=== PATIENT | male | born 1965 | race Caucasian/White ===

== ENCOUNTER 2017-10-05 23:22 | Emergency (ER) | payer OTHER ==
[2017-10-05 23:40] VITALS: BP 165/101; PULSE 77; RESP 18; TEMP 97.9; O2SAT 100
[2017-10-05 23:54] VITALS: BP 175/100; PULSE 73; RESP 16; TEMP 98.8; O2SAT 99
[2017-10-06 01:26] LABS: AUTOMATED NEUTROPHIL # 4.7 TH/MM3 (1.8-7.7); BASOPHIL # 0.1 TH/MM3 (0-0.2); BASOPHIL % 1.1 % (0.0-2.0); EOSINOPHIL # 0.2 TH/MM3 (0-0.4); EOSINOPHIL % 3.2 % (0.0-4.0); HEMATOCRIT 47.4 % (39.0-51.0); HEMOGLOBIN 16.1 GM/DL (13.0-17.0); LYMPH % 19.2 % (9.0-44.0); LYMPHOCYTE # 1.3 TH/MM3 (1.0-4.8); MEAN CELL VOLUME 89.8 FL (80.0-100.0); MEAN CORPUSCULAR HEMOGLOBIN 30.5 PG (27.0-34.0); MEAN CORPUSCULAR HGB CONC 33.9 % (32.0-36.0); MEAN PLATELET VOLUME 8.5 FL (7.0-11.0); MONO % 7.8 % (0.0-8.0); MONOCYTE # 0.5 TH/MM3 (0-0.9); NEUT % 68.7 % (16.0-70.0); PLATELET COUNT 266 TH/MM3 (150-450); RED BLOOD COUNT 5.28 MIL/MM3 (4.50-5.90); RED CELL DISTRIBUTION WIDTH 13.2 % (11.6-17.2); WHITE BLOOD COUNT 6.8 TH/MM3 (4.0-11.0)
[2017-10-06 01:38] LABS: ALBUMIN 4.3 GM/DL (3.4-5.0); ALT (GPT) 46 U/L (12-78); AST (GOT) 43 U/L (15-37); BICARBONATE 30.1 MEQ/L (21.0-32.0); BLOOD UREA NITROGEN 9 MG/DL (7-18); CALCIUM 8.5 MG/DL (8.5-10.1); CHLORIDE 102 MEQ/L (98-107); CREATININE 0.85 MG/DL (0.60-1.30); GLOMERULAR FILTRATION RATE 95 ML/MIN (>89); GLUCOSE,RANDOM 131 MG/DL (74-106); SODIUM (NA) 140 MEQ/L (136-145)
[2017-10-06 01:48] LABS: ALKALINE PHOSPHATASE 103 U/L (45-117); TOTAL BILIRUBIN ADULT 0.5 MG/DL (0.2-1.0); TOTAL PROTEIN 8.8 GM/DL (6.4-8.2)
[2017-10-06 02:33] VITALS: BP 101/59; PULSE 67; RESP 18; TEMP 98.1; O2SAT 95
--- NOTE | 2017-10-06 03:00 | PD ---
HPI Chief Complaint: Psychiatric Symptoms Time Seen by Provider: 02:05 Travel History International Travel<30 days: No Contact w/Intl Traveler<30days: No Traveled to known affect area: No History of Present Illness HPI Patient is a 51-year-old male presenting to the emergency department under a Awad act for psychiatric evaluation secondary to making suicidal statements to his sister. Patient denies any suicidality currently. He does admit to drinking alcohol all day. Patient states that he fell asleep on his scooter in his enclosed shed. He reported that she had this 14 x 30, there was no open doors or windows but he reports an open roof vent. He denies trying to harm himself by carbon monoxide poisoning. He has no other complaints at this time. He denies any headache, dizziness, nausea, chest pain, shortness of breath. [facility] Past Medical History Medical History: Denies Significant Hx Diminished Hearing: No Past Surgical History Surgical History: No Previous Surgery Social History Alcohol Use: Yes (WEEKENDS) Tobacco Use: No Substance Use: Yes Allergies-Medications (Allergen,Severity, Reaction): Coded Allergies: No Known Allergies (Unverified , 10/05/17) Reported Meds & Prescriptions Reported Meds & Active Scripts Active No Active Prescriptions or Reported Medications Review of Systems Except as stated in HPI: all other systems reviewed are Neg Psychiatric: Positive: Suicidal Ideations, Substance Abuse Physical Exam Exam Limitations: Intoxication Narrative GENERAL: Well-developed, well-nourished, alert male. Resting in no acute distress. SKIN: Warm and dry. HEAD: Atraumatic. Normocephalic. EYES: Pupils equal and round. No scleral icterus. Mild injection but no drainage. ENT: No nasal bleeding or discharge. Mucous membranes pink and moist. NECK: Trachea midline. No JVD. CARDIOVASCULAR: Regular rate and rhythm. RESPIRATORY: No accessory muscle use. Clear to auscultation. Breath sounds equal bilaterally. GASTROINTESTINAL: Abdomen soft, non-tender, nondistended. Hepatic and splenic margins not palpable. MUSCULOSKELETAL: Extremities without clubbing, cyanosis, or edema. No obvious deformities. NEUROLOGICAL: Awake and alert. No obvious cranial nerve deficits. Motor grossly within normal limits. Five out of 5 muscle strength in the arms and legs. Normal speech. PSYCHIATRIC: Appropriate mood and affect; insight and judgment normal. Data Data Last Documented VS Vital Signs Date Time Temp Pulse Resp B/P (MAP) Pulse Ox O2 Delivery O2 Flow Rate FiO2 10/06/17 02:33 98.1 67 18 101/59 (73) 95 Room Air Orders Orders Complete Blood Count With Diff (10/05/17 23:53) Comprehensive Metabolic Panel (10/05/17 23:53) Thyroid Stimulating Hormone (10/05/17 23:53) Psych Screen (10/05/17 23:53) Drug Screen, Random Urine (10/05/17 23:53) Alcohol (Ethanol) (10/05/17 23:53) Diet Regular Basic (10/06/17 Breakfast) Arterial Blood Gas (Abg) (10/06/17 ) Resp Blood Gas Carboxy Hgb (10/06/17 ) Labs Laboratory Tests Test 10/06/17 00:30 White Blood Count 6.8 TH/MM3 Red Blood Count 5.28 MIL/MM3 Hemoglobin 16.1 GM/DL Hematocrit 47.4 % Mean Corpuscular Volume 89.8 FL Mean Corpuscular Hemoglobin 30.5 PG Mean Corpuscular Hemoglobin Concent 33.9 % Red Cell Distribution Width 13.2 % Platelet Count 266 TH/MM3 Mean Platelet Volume 8.5 FL Neutrophils (%) (Auto) 68.7 % Lymphocytes (%) (Auto) 19.2 % Monocytes (%) (Auto) 7.8 % Eosinophils (%) (Auto) 3.2 % Basophils (%) (Auto) 1.1 % Neutrophils # (Auto) 4.7 TH/MM3 Lymphocytes # (Auto) 1.3 TH/MM3 Monocytes # (Auto) 0.5 TH/MM3 Eosinophils # (Auto) 0.2 TH/MM3 Basophils # (Auto) 0.1 TH/MM3 CBC Comment DIFF FINAL Differential Comment Blood Urea Nitrogen 9 MG/DL Creatinine 0.85 MG/DL Random Glucose 131 MG/DL Total Protein 8.8 GM/DL Albumin 4.3 GM/DL Calcium Level 8.5 MG/DL Alkaline Phosphatase 103 U/L Aspartate Amino Transf (AST/SGOT) 43 U/L Alanine Aminotransferase (ALT/SGPT) 46 U/L Total Bilirubin 0.5 MG/DL Sodium Level 140 MEQ/L Potassium Level 3.5 MEQ/L Chloride Level 102 MEQ/L Carbon Dioxide Level 30.1 MEQ/L Anion Gap 8 MEQ/L Estimat Glomerular Filtration Rate 95 ML/MIN Thyroid Stimulating Hormone 3rd Gen 0.470 uIU/ML Ethyl Alcohol Level 189 MG/DL MDM Medical Decision Making Medical Screen Exam Complete: Yes Emergency Medical Condition: Yes Interpretation(s) Vital Signs Date Time Temp Pulse Resp B/P (MAP) Pulse Ox O2 Delivery O2 Flow Rate FiO2 10/06/17 02:33 98.1 67 18 101/59 (73) 95 Room Air 10/05/17 23:54 98.8 73 16 175/100 (125) 99 Room Air 10/05/17 23:40 97.9 77 18 165/101 (122) 100 Differential Diagnosis Carbon monoxide poisoning versus suicidal ideations versus metabolic abnormality versus intoxication versus other Narrative Course Patient is a 51-year-old male brought in under a Awad act secondary to making suicidal ideations. On the Awad act it was noted that patient was in an enclosed garage for approximately 30 minutes passed out on his scooter while the scooter was running. There is a concern for carbon monoxide poisoning, discussed with my attending physician, we will obtain an ABG and and carboxyhemoglobin. Patient's vital signs are stable. Mental health screening discussed with the patient. Psychiatric screen ordered. Labs reviewed, no acute findings identified. Alcohol level is 189. Carboxyhemoglobin is within normal limits. ABG was reviewed by my attending physician. Patient is medically cleared for psychiatric evaluation at this time. Diagnosis Primary Impression: Medical clearance for psychiatric admission Scripts No Active Prescriptions or Reported Meds Condition: Stable Nikki Hughes Oct 06, 2017 03:00
[2017-10-06 06:30] VITALS: BP 156/90; PULSE 70; RESP 17; TEMP 98.9; O2SAT 95
[2017-10-06 10:00] VITALS: BP 169/95; PULSE 64; RESP 20; O2SAT 96
[2017-10-06 18:30] VITALS: BP 164/86; PULSE 84; RESP 18
[2017-10-06 22:02] VITALS: BP 154/84; PULSE 65; RESP 18; TEMP 98.8; O2SAT 97
[2017-10-07 02:01] VITALS: BP 136/63; PULSE 63; RESP 17; TEMP 97.7; O2SAT 99
[2017-10-07 06:32] VITALS: BP 169/96; PULSE 64; RESP 16; TEMP 98.6; O2SAT 97
--- NOTE | 2017-10-07 11:30 | PD ---
History of Present Illness Chief Complaint: Psychiatric Symptoms Time Seen by Provider: 10:40 Travel History International Travel<30 Days: No Contact w/Intl Traveler<30days: No Known affected area: No Legal Status Legal Status: Awad Act Awad Act Signed By: Dunia Wayne History of Present Illness: History of Present Illness HPI Patient is a 51-year-old male with no previous psychiatric history presenting to the emergency department under a Awad act initiated by law enforcement. The Awad act alleges that the patient called his sister who lives out of state and told her he was tying up loose ends and wanting to say goodbye. Additionally he told her he was getting sleepy and was in an enclosed garage with a running vehicle. 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 He stated it was his right to kill himself and did not give any specific reason for wanting to harm himself. He was very intoxicated and admitted to consuming 20-25 beers throughout the day. The patient was intoxicated upon arrival and his blood alcohol level was 189. Other toxicology was negative. EMR is reviewed. No previous contact with [facility] psychiatry. The patient was monitored in [facility] for extended period of time he presented no behavioral concerns and no suicidality. He required no ETO's. Patient is seen. He is clinically sober with no symptoms of withdrawal. He is alert, oriented male dressed in [facility] and maintaining basic hygiene. His speech is clear, logical, normal rate and tone. Affect is appropriate and congruent to his mood. Patient does not present any hallucinations, no delusions and no paranoia. No significant objective clinical symptoms of depression are noted. He is anxious about being here and frequently states that " this has been an eye opening experience." He is denying any suicidal ideation , intent or plan. There is no homicidal ideation. The patient reports that he was going through some heartbreak over recent breakup and that" I got caught up on too much drinking". He states "my life is a good and what I did was a random act of recklessness". He also states that he needs to get back to work and to his family which loves him. He also states that he just bought his business and needs to get back to his responsibilities. He does report episodic episodes of sadness and mild depression.. After consent obtained to contact sister and brother . I spoke to his brother Major at [phone]. He has no concerns for his safety if he were to be discharged. I also spoke with sister Nicky Wallis at [phone]. She reports that He has a close relationship with his nephew who has been in communication with the patient. The nephew is supportive of the patient . She also reports that he had called her earlier in the week and shared with her that he wanted to change his life and was thinking of settling down including buying a home. She believes that his action was a cry for help and that he really didn't want to harm himself. They will come down to see him next week. PFSH Past Medical History Medical History: Denies Significant Hx Diminished Hearing: No Past Surgical History Surgical History: No Previous Surgery Psychiatric History Psychiatric History Hx Psychiatric Treatment: PATIENT DENIES. No previous suicide attempts. History of Inpatient Treatment: No Guns or firearms in home: No Social History Divorce male originally from [place]. He has a 12-year-old daughter who lives in [place]. 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 Reports has a good relationship with his nephew and nieces as well asked his brothers and his sisters. Hx Alcohol Use: Yes (WEEKENDS) Hx Tobacco Use: No Hx Substance Use: Yes Substance Use Type: Alcohol Hx of Substance Use Treatment: Yes Family Psychiatric History Negative Allergies-Medications (Allergen,Severity, Reaction): Coded Allergies: No Known Allergies (Unverified , 10/05/17) Reported Meds & Prescriptions Reported Meds & Active Scripts Active No Active Prescriptions or Reported Medications Mental Status Examination Appearance: Appropriate Consciousness: Alert Orientation: x4 Motor Activity: Normal gait Speech: Unremarkable Language: Adequate Fund of Knowledge: Adequate Attention and Concentration: Adequate Memory: Unremarkable Mood: Appropriate Affect: Appropriate Thought Process & Associations: Intact, Logical, Goal directed Thought Content: Appropriate Hallucination Type: None Delusion Type: None Suicidal Ideation: No Suicidal Plan: No Suicidal Intention: No Homicidal Ideation: No Homicidal Plan: No Homicidal Intention: No Insight: Fair Judgment: Adequate MDM Medical Decision Making Medical Record Reviewed: Yes Assessment/Plan 51-year-old male previous psychiatric history, no previous history of suicide attempt, hoeing context of a recent breakup with a girlfriend and while under the influence of alcohol he called his sister and told her he was tying up loose ends and wanted to say goodbye. The patient was found inside of a shed at his business slumped over a scooter which was running. The patient was intoxicated with a blood alcohol level of 189. He insists that there was a vent in the roof with a shed. After being monitored here in [facility] for extended period of time the patient did not present any behavioral concerns and no suicidality. The patient denies that he is suicidal or homicidal. He is future oriented with adequate protective factors in place. His family is supportive and they will be coming down next week to spend some time with him. They have also corroborated that he is going up to [place] next week to help for friend out with some [employer] work. The patient is counseled over continued use of alcohol. He is also encouraged to follow up with [facility] for counseling and possible medication. He contracts for safety as a general safety plan. At this time the patient denies does not meet Awad act criteria and the Awad act is lifted. Psychiatrically clear for discharge. Orders Orders Diet Regular Basic (10/06/17 Lunch) Diet Regular Basic (10/06/17 Dinner) Diet Regular Basic (10/07/17 Breakfast) Diet Regular Basic (10/07/17 Lunch) Results Vital Signs Date Time Temp Pulse Resp B/P (MAP) Pulse Ox O2 Delivery O2 Flow Rate FiO2 10/07/17 06:32 98.6 64 16 169/96 (120) 97 Room Air 10/07/17 02:01 97.7 63 17 136/63 (87) 99 Room Air 10/06/17 22:02 98.8 65 18 154/84 (107) 97 Room Air 10/06/17 18:30 84 18 164/86 (112) Diagnosis Primary Impression: Alcohol-induced mood disorder Additional Impressions: Medical clearance for psychiatric admission Adjustment disorder Psychiatrically Cleared: Yes Med/ Other Pt Specific Info: No Meds Exist/No RX given Prescriptions No Active Prescriptions or Reported Meds Disposition: 01 DISCHARGE HOME Condition: Stable Problem Qualifiers Additional Impressions: Adjustment disorder Qualified Codes: F43.25 - Adjustment disorder with mixed disturbance of emotions and conduct Ryanne Finnegan Oct 07, 2017 11:30
--- NOTE | 2017-10-07 11:52 | PD ---
Physical Exam Date Seen by Provider: Oct 07, 2017 Time Seen by Provider: 11:51 Narrative 51-year-old male previously medically cleared for psychiatric evaluation. Patient has been seen by psychiatric services and felt to be psychiatrically stable for discharge. Patient maintained medical clearance at this time. Follow-up plan is per psychiatric note. Data Data Last Documented VS Vital Signs Date Time Temp Pulse Resp B/P (MAP) Pulse Ox O2 Delivery O2 Flow Rate FiO2 10/07/17 11:36 10/07/17 06:32 98.6 64 16 97 Room Air Orders Orders Complete Blood Count With Diff (10/05/17 23:53) Comprehensive Metabolic Panel (10/05/17 23:53) Thyroid Stimulating Hormone (10/05/17 23:53) Psych Screen (10/05/17 23:53) Drug Screen, Random Urine (10/05/17 23:53) Alcohol (Ethanol) (10/05/17 23:53) Diet Regular Basic (10/06/17 Breakfast) Arterial Blood Gas (Abg) (10/06/17 ) Resp Blood Gas Carboxy Hgb (10/06/17 ) Diet Regular Basic (10/06/17 Lunch) Diet Regular Basic (10/06/17 Dinner) Diet Regular Basic (10/07/17 Breakfast) Diet Regular Basic (10/07/17 Lunch) Labs Laboratory Tests Test 10/06/17 00:30 10/06/17 02:53 10/06/17 03:03 White Blood Count 6.8 TH/MM3 Red Blood Count 5.28 MIL/MM3 Hemoglobin 16.1 GM/DL Hematocrit 47.4 % Mean Corpuscular Volume 89.8 FL Mean Corpuscular Hemoglobin 30.5 PG Mean Corpuscular Hemoglobin Concent 33.9 % Red Cell Distribution Width 13.2 % Platelet Count 266 TH/MM3 Mean Platelet Volume 8.5 FL Neutrophils (%) (Auto) 68.7 % Lymphocytes (%) (Auto) 19.2 % Monocytes (%) (Auto) 7.8 % Eosinophils (%) (Auto) 3.2 % Basophils (%) (Auto) 1.1 % Neutrophils # (Auto) 4.7 TH/MM3 Lymphocytes # (Auto) 1.3 TH/MM3 Monocytes # (Auto) 0.5 TH/MM3 Eosinophils # (Auto) 0.2 TH/MM3 Basophils # (Auto) 0.1 TH/MM3 CBC Comment DIFF FINAL Differential Comment Blood Urea Nitrogen 9 MG/DL Creatinine 0.85 MG/DL Random Glucose 131 MG/DL Total Protein 8.8 GM/DL Albumin 4.3 GM/DL Calcium Level 8.5 MG/DL Alkaline Phosphatase 103 U/L Aspartate Amino Transf (AST/SGOT) 43 U/L Alanine Aminotransferase (ALT/SGPT) 46 U/L Total Bilirubin 0.5 MG/DL Sodium Level 140 MEQ/L Potassium Level 3.5 MEQ/L Chloride Level 102 MEQ/L Carbon Dioxide Level 30.1 MEQ/L Anion Gap 8 MEQ/L Estimat Glomerular Filtration Rate 95 ML/MIN Thyroid Stimulating Hormone 3rd Gen 0.470 uIU/ML Ethyl Alcohol Level 189 MG/DL Blood Gas Puncture Site LT RADIAL Blood Gas Patient Temperature 98.6 Blood Gas HCO3 27 mmol/L Blood Gas Base Excess 2.6 mmol/L Blood Gas Oxygen Saturation 95 % Arterial Blood pH 7.42 Arterial Blood Partial Pressure CO2 42 mmHg Arterial Blood Partial Pressure O2 91 mmHG Arterial Blood Oxygen Content 19.8 Vol % Arterial Blood Carboxyhemoglobin 1.4 % Arterial Blood Methemoglobin 0.7 % Blood Gas Hemoglobin 14.7 G/DL Blood Gas Inspired Oxygen 21 % Urine Opiates Screen NEG Urine Barbiturates Screen NEG Urine Amphetamines Screen NEG Urine Benzodiazepines Screen NEG Urine Cocaine Screen NEG Urine Cannabinoids Screen NEG MDM Medical Record Reviewed: Yes Supervised Visit with JOSH: Yes Narrative Course 51-year-old male previously medically cleared for psychiatric evaluation. Patient has been seen by psychiatric services and felt to be psychiatrically stable for discharge. Patient maintained medical clearance at this time. Follow-up plan is per psychiatric note. Diagnosis Primary Impression: Alcohol-induced mood disorder Additional Impressions: Medical clearance for psychiatric admission Adjustment disorder Referrals: [facility] facility [facility] Patient Instructions: General Instructions, Mood Disorders (ED), Alcohol Use Disorder (ED) Departure Forms: Tests/Procedures Scripts No Active Prescriptions or Reported Meds Disposition: DISCHARGE HOME Condition: Stable Daniel Sanchez Oct 07, 2017 11:52
== END 2017-10-07 11:58 | disposition home or self-care (01) ==
LOC: NEPJ 23:22
DX: F10.94 Alcohol use, unspecified with alcohol-induced mood disorder (principal); F43.20 Adjustment disorder, unspecified; F10.129 Alcohol abuse with intoxication, unspecified
CPT/HCPCS: 36600; 80053; 80307; 82805; 84443; 85025; 99283